=== PATIENT | female | born 1980 | race Caucasian/White ===

== ENCOUNTER 2018-05-18 12:42 | Emergency (ER) | payer SELFPAY ==
[~2018-05-18] VITALS: Ht 165.1 cm; Wt 66.5 kg
[~2018-05-18 12:42] MED LIST: BACTRIM,SEPT1 TABLET PO; ENDOCET 5-3251 EACH PO; MELATIN3 MG PO; Motrin PO; PEN-VEE K,VEET500 MG PO; XANAX0.25 MG PO
[2018-05-18 12:56] VITALS: BP 131/85
== END 2018-05-18 14:05 | disposition left against medical advice (07) ==
LOC: EME 12:42
DX: T78.40XA Allergy, unspecified, initial encounter (principal); Z53.21 Procedure and treatment not carried out due to patient leaving prior to being seen by health care provider